=== PATIENT | male | born 1985 | race Caucasian/White ===

== ENCOUNTER 2019-04-07 00:06 | Emergency (ER) | payer SELFPAY ==
[2019-04-07 01:36] LABS: URINE BLOOD (Dip) POC Negative (NEGATIVE); URINE GLUCOSE (Dip) POC Negative (NEGATIVE); URINE KETONES (Dip) POC Trace (NEGATIVE); URINE LEUKOCYTE EST (Dip) POC Negative (NEGATIVE); URINE NITRITE (Dip) POC Negative (NEGATIVE); URINE TOTAL PROTEIN POC Trace (NEGATIVE)
[2019-04-07 01:36] LABS: URINE PH (Dip) POC 5.5 (5.0-8.5)
[2019-04-07] MEDS: HYDROCODONE/APAP (5/325) TAB PO (01:39)
[2019-04-07] MEDS: KETOROLAC 30 MG INJ IM (01:39)
== END 2019-04-07 02:09 | disposition home or self-care (01) ==
LOC: FTE 00:06
DX: S39.012A Strain of muscle, fascia and tendon of lower back, initial encounter (principal); X58.XXXA Exposure to other specified factors, initial encounter; Y92.9 Unspecified place or not applicable
CPT/HCPCS: 81003; 96372; 99284-25